=== PATIENT | male | born 1965 | race Caucasian/White ===

== ENCOUNTER 2016-10-14 14:31 | Day surgery (SDC) | payer OTHER ==
[~2016-10-14] VITALS: Ht 185.4 cm; Wt 96.8 kg
[2016-10-14 15:01] VITALS: Ht 185.4 cm; Wt 96.8 kg
[2016-10-14 17:20] VITALS: BP 99/58; PULSE 44; RESP 13
[2016-10-14] MEDS ORDERED: ATROPINE 1 MG/10 ML SYRINGE ONE ×2 (17:54→18:02)
[2016-10-14] MEDS ORDERED: MIDAZOLAM 1 MG/ML 2 ML INJ ONE ×3 (17:54)
[2016-10-14] MEDS ORDERED: FENTAnyl 50 MCG/ML VIAL ONE (17:55)
[2016-10-14 18:08] VITALS: BP 98/63; RESP 12
--- NOTE | 2016-10-15 03:00 | GILP ---
DATE OF PROCEDURE: 10/14/2016 PROCEDURE: Colonoscopy to cecum. HISTORY AND INDICATIONS: The patient is here for colorectal cancer screening. PREMEDICATION: Monitored anesthesia care by anesthesiologist. INSTRUMENT USED: Olympus colonoscope. PREPARATION: Adequate. TECHNIQUE: After informed consent, with the patient/relatives understanding the procedure, its indications potential risks and complications, including but not limited to: allergic reaction, bleeding, perforation, infection, missed lesions and after all pertinent questions were answered to the patient's satisfaction, the patient/relatives signed the witnessed informed consent. Following this, premedication was administered slowly IV push by under careful cardiovascular and respiratory monitoring with pulse oximetry, automatic blood pressure and benefits representative. Once the sedative effect was achieved, the patient was placed in the left lateral decubitus position, digital rectal examination was performed. The colonoscope was then introduced and advanced under visual control throughout all segments of the colon including: the rectum, sigmoid, descending colon, splenic flexure, transverse colon, hepatic flexure, ascending colon and finally reaching the cecum which was clearly identified by transillumination, finger indentation and the ileocecal valve. Careful examination of the mucosa of the lower gastrointestinal tract both on insertion as well as withdrawal of the instrument disclosed the following findings: RECTAL EXAMINATION: No evidence of perirectal disease, no masses. COLONIC MUCOSA: The colonic mucosa is unremarkable throughout. The ileocecal valve was clearly identified and appears unremarkable. The instrument was then withdrawn. Re-examined the mucosa in detail. No additional abnormalities were noted with the exception of moderate-sized internal hemorrhoids. IMPRESSION: Moderate-sized internal hemorrhoids; otherwise, normal colonoscopy to cecum. RECOMMENDATIONS: The patient will follow up as an outpatient. Hemoccult stool testing is recommended. Screening colonoscopy in 10 years is recommended. Dictated By: Camille Felipe MD /[email or web address]/[email or web address] /Document#: [id number]
== END 2016-10-14 18:12 | disposition home or self-care (01) ==
LOC: GIL 14:31
PROVIDERS: ATTEND Internal Medicine Gastroenterology
DX: Z12.11 Encounter for screening for malignant neoplasm of colon (principal); K64.8 Other hemorrhoids
CPT/HCPCS: 45378; J0461; J2250; J3010